=== PATIENT | female | born 1965 ===

== ENCOUNTER 2016-12-20 12:13 | Emergency (ER) | payer MEDICAID ==
[2016-12-20 12:14] VITALS: BMI 19.3
--- NOTE | 2016-12-20 12:42 | ED PDOC ---
Lower Extremity Pain/Injury Time Seen by Provider: 12/20/16 12:15 Chief Complaint (Nursing): Lower Extremity Problem/Injury Chief Complaint (Provider): bilateral leg pain History Per: Patient History/Exam Limitations: no limitations Onset/Duration Of Symptoms: Days (x 7) Current Symptoms Are (Timing): Still Present Additional Complaint(s): Maryjane France is a 51 year old female, with a previous medical history of hypertension, CAD and hypercholesterolemia, who presents to the ED with complaints of atraumatic bilateral foot pain ongoing for 7 days. Pt reports pain is associated with numbness to the toes bilaterally. Pt reports pain radiates from the foot to the back of her leg. Pt states to experiencing pain with walking along with minor shortness of breath. Pt denies any chest pain. Pt reports to being hospitalized recently for one week. Pt denies any additional complaints at this time. PMD: none provided Past Medical History Reviewed: Historical Data, Nursing Documentation, Vital Signs Vital Signs: Last Vital Signs Temp 97 F L 12/20/16 12:26 Pulse 117 H 12/20/16 12:26 Resp 20 12/20/16 12:26 BP 98/70 L 12/20/16 12:26 Pulse Ox 98 12/20/16 12:26 - Medical History PMH: CAD, HTN, Hypercholesterolemia Denies: Chronic Kidney Disease - Surgical History Surgical History: CABG (X1 08/20/2016), Coronary Stent - Family History Family History: States: Unknown Family Hx - Immunization History Hx Tetanus Toxoid Vaccination: No Hx Influenza Vaccination: No Hx Pneumococcal Vaccination: No - Home Medications Home Medications: Ambulatory Orders Medication Instructions Recorded Aspirin [Aspirin Chewable] 81 mg PO DAILY #0 chew 01/08/16 Atorvastatin Calcium 40 mg PO DAILY 11/19/16 Butalbit/Acetamin/Caff/Codeine 1 - 2 cap PO Q4H PRN 11/19/16 [Mjxhme-Ynwlzhgrsdk-Brvj-Codein] Carvedilol [Coreg] 3.125 mg PO BID 11/19/16 Clopidogrel [Plavix] 75 mg PO DAILY tab 11/23/16 Nitrofurantoin Macrocrystals 1 cap PO BID #14 cap 12/03/16 [Macrobid] Oseltamivir [Tamiflu] 75 mg PO BID #10 cap 12/03/16 Pregabalin [Lyrica] 50 mg PO TID #30 cap 12/20/16 - Allergies Allergies/Adverse Reactions: Allergies Allergy/AdvReac Type Severity Reaction Status Date / Time ciprofloxacin [From Cipro] Allergy RASH Verified 12/20/16 12:25 ciprofloxacin HCl Allergy RASH Verified 12/20/16 12:25 [From Cipro] iodine Allergy SWELLING Verified 12/20/16 12:25 Review of Systems ROS Statement: Except As Marked, All Systems Reviewed And Found Negative Respiratory: Positive for: Shortness of Breath (minor ) Musculoskeletal: Positive for: Leg Pain, Foot Pain Neurological: Positive for: Numbness (in toes of both feet ) Physical Exam - Reviewed Nursing Documentation Reviewed: Yes Vital Signs Reviewed: Yes - Physical Exam Appears: Positive for: Well, Non-toxic, No Acute Distress Skin: Positive for: Normal Color (no skin changes), Warm, Dry Cardiovascular/Chest: Positive for: Regular Rate, Rhythm Respiratory: Positive for: Normal Breath Sounds. Negative for: Decreased Breath Sounds, Accessory Muscle Use, Crackles, Rales, Rhonchi, Wheezing, Respiratory Distress Pulses-Dorsalis Pedis (L): 2+ Pulses-Dorsalis Pedis (R): 2+ Pulses-Post. Tibialis (L): 2+ Pulses-Post. Tibialis (R): 2+ Extremity: Positive for: Normal ROM, Calf Tenderness (bilaterally), Capillary Refill (< 2 seconds). Negative for: Tenderness, Pedal Edema, Deformity, Swelling Neurologic/Psych: Positive for: Alert, Oriented - Laboratory Results Result Diagrams: 12/20/16 13:05 12/20/16 13:05 - ECG O2 Sat by Pulse Oximetry: 98 (RA) Pulse Ox Interpretation: Normal Medical Decision Making Medical Decision Making: Initial Impression: muscle cramping w/o rhabdo Initial Plan: * urinalysis * labs * creatine phosphokinase * reevaluation at this time LFTs have improved from most recent exam and no evidence of rhabdomyolisis at this time. however pt with c/o of neuropathy-will given lyrica, but strongly encouraged to have routine pmd visits for liver enzyme tests. pt understands and agrees. Scribe Attestation: Documented by Sol Manuel, acting as a scribe for Promise Cottrell PA-C. Provider Scribe Attestation: All medical record entries made by the Scribe were at my direction and personally dictated by me. I have reviewed the chart and agree that the record accurately reflects my personal performance of the history, physical exam, medical decision making, and the department course for this patient. I have also personally directed, reviewed, and agree with the discharge instructions and disposition. Disposition - Clinical Impression Clinical Impression: Neuropathy - Patient ED Disposition Is Patient to be Admitted: No Counseled Patient/Family Regarding: Studies Performed, Diagnosis, Need For Followup, Rx Given - Disposition Disposition: Routine/Home Disposition Time: 13:51 Condition: STABLE Prescriptions: Pregabalin [Lyrica] 50 mg PO TID #30 cap Instructions: Peripheral Neuropathy (ED)
[2016-12-20] MEDS ORDERED: Sodium Chloride 0.9% 1,000 ML IV STA (13:09)
[2016-12-20 13:16] LABS: BASO % 0.4 % (0.0-2.0); EOS % 0.4 % (0.0-4.0); HEMATOCRIT 37.5 % (34.0-47.0); LYMPH # 1.8 K/uL (1.0-4.3); MEAN CELL VOLUME 90.4 fl (81.0-99.0); MEAN CORPUSCULAR HEMOGLOBIN 28.6 pg (27.0-31.0); MEAN CORPUSCULAR HGB CONC 31.6 g/dL (33.0-37.0); MEAN PLATELET VOLUME 7.5 fl (7.2-11.7); MONO # 0.6 K/uL (0.0-0.8); MONO % 12.1 % (0.0-10.0); NEUT # 2.3 K/uL (1.8-7.0); NEUT % 48.1 % (50.0-75.0); NRBC % 0.1 % (0.0-0.0); WHITE BLOOD COUNT 4.7 K/uL (4.8-10.8)
[2016-12-20 13:21] LABS: RBC URINE 1 /hpf (0-3); URINE BILIRUBIN NEGATIVE (NEGATIVE); URINE BLOOD NEGATIVE (NEGATIVE); URINE COLOR AMBER (YELLOW); URINE GLUCOSE (UA) NEG (Normal); URINE KETONE TRACE mg/dL (NEGATIVE); URINE LEUKOCYTE ESTERASE NEG Leu/uL (Negative); URINE PROTEIN 30 mg/dL (NEGATIVE); URINE UROBILINOGEN 0.2-1.0 mg/dL (0.2-1.0); WBC URINE 2 /hpf (0-5)
[2016-12-20 13:25] LABS: ALB/GLOB RATIO 0.8 (1.0-2.1); ALKALINE PHOSPHATASE 83 U/L (38-126); ALT/SGPT 53 U/L (9-52); AST/SGOT 97 U/L (14-36); BILIRUBIN,TOTAL 0.8 mg/dl (0.2-1.3); BLOOD UREA NITROGEN 15 mg/dl (7-17); CALCIUM 9.3 mg/dL (8.4-10.2); CARBON DIOXIDE 29 mmol/L (22-30); CHLORIDE 106 mmol/L (98-107); GFR AFRICAN-AMERICAN > 60; GLUCOSE,RANDOM 88 mg/dL (65-105); SODIUM 145 mmol/l (132-148); TOTAL PROTEIN 8.2 G/DL (6.3-8.2)
[2016-12-20 14:18] VITALS: BP 100/78; PULSE 78; RESP 18; TEMP 98.2; O2SAT 99
== END 2016-12-20 14:18 | disposition home or self-care (01) ==
LOC: H.ER 12:13
DX: G62.9 Polyneuropathy, unspecified (principal); E78.00 Pure hypercholesterolemia, unspecified; I10 Essential (primary) hypertension; Z79.82 Long term (current) use of aspirin; Z95.1 Presence of aortocoronary bypass graft; Z95.5 Presence of coronary angioplasty implant and graft